=== PATIENT | male | born 1960 | race Caucasian/White ===

== ENCOUNTER 2018-02-23 08:44 | Inpatient (IN) | payer OTHER ==
[~2018-02-23] VITALS: Ht 172.7 cm; Wt 67.6 kg
[2018-02-23] MEDS ORDERED: TAMS0.4C34 PO (08:56)
[2018-02-23] MEDS ORDERED: ROSU10TA PO (08:56)
[2018-02-23] MEDS ORDERED: ASPI-605 PO (08:56)
[2018-02-23] MEDS ORDERED: CLOP75TA15 PO (08:56)
[2018-02-23] MEDS ORDERED: MORPHINE SULFATE 2 MG/1 ML DISP.SYRIN IV ONE (09:00)
[2018-02-23] MEDS ORDERED: ONDANSETRON 4 MG/2 ML VIAL IV ONE (09:00)
[2018-02-23] MEDS ORDERED: IV NORMAL SALINE 1000 ML BAG IV ONE (09:00)
[2018-02-23] MEDS ORDERED: SWABABLE VALVE TRANSFER SET EA MC ONE (09:10)
[2018-02-23] MEDS ORDERED: IV NORMAL SALINE 250 ML IV ONE (09:10)
[2018-02-23] MEDS ORDERED: IOHEXOL 300MG/ML 100 ML INFUS..BTL ONE (09:10)
[2018-02-23 09:14] LABS: BASOPHILS % (AUTO) 0.2 % (0.0-2.0); EOSINOPHILS # (AUTO) 0.1 K/uL (0.0-0.7); EOSINOPHILS % (AUTO) 0.9 % (0.0-7.0); HEMATOCRIT 45.8 % (36.7-47.1); HEMOGLOBIN 15.9 g/dL (12.5-16.3); LYMPHOCYTES # (AUTO) 0.9 K/uL (20.0-40.0); LYMPHOCYTES % (AUTO) 9.5 % (20.5-51.5); MEAN CORPUSCULAR HEMOGLOBIN 31.3 uug (23.8-33.4); MEAN CORPUSCULAR HGB CONC 35 g/dL (32.5-36.3); MEAN CORPUSCULAR VOLUME 89.7 fL (73.0-96.2); MONOCYTES # (AUTO) 0.5 K/uL (2.0-10.0); MONOCYTES % (AUTO) 5.6 % (0.0-11.0); NEUTROPHILS # (AUTO) 7.9 K/uL (1.8-8.9); NEUTROPHILS % (AUTO) 83.8 % (38.5-71.5); PLATELET COUNT (AUTO) 239 K/uL (152-348); WHITE BLOOD COUNT (AUTO) 9.4 K/uL (3.6-10.2)
[2018-02-23] MEDS ORDERED: MORPHINE SULFATE 2 MG/1 ML DISP.SYRIN ONE (09:17)
[2018-02-23] MEDS ORDERED: ONDANSETRON 4 MG/2 ML VIAL ONE (09:17)
[2018-02-23 09:28] LABS: CREATININE 0.9 mg/dL (0.6-1.3); POTASSIUM 3.9 mmol/L (3.5-5.1)
[2018-02-23 09:28] LABS: *BILIRUBIN,URIN NEGATIVE (NEGATIVE); *BLOOD, URINE Trace-lysed (NEGATIVE); *CLARITY,URINE CLEAR (CLEAR); *COLOR,URINE LIGHT YELLOW (YELLOW); *KETONES,URINE NEGATIVE (NEGATIVE); *PROTEIN,URINE NEGATIVE (NEGATIVE); *UROBILINOGEN,URINE 0.2 E.U./dl (NORMAL); LEUKOCYTE ESTERASE ,URINE NEGATIVE (NEGATIVE); NITRITE, URINE NEGATIVE (NEGATIVE); UGLUCOSE NEGATIVE (NEGATIVE)
[2018-02-23 09:39] LABS: BILIRUBIN,DIRECT 0.2 mg/dL (0.0-0.2); BILIRUBIN,TOTAL 1.1 mg/dL (0.2-1.0)
[2018-02-23 09:41] LABS: BACTERIA,URINE NONE SEEN /HPF (NONE SEEN); WBC,URINE NONE SEEN /HPF (0-3)
[2018-02-23 09:43] LABS: RBC,URINE 0-3 /HPF (0-3); SQUAMOUS EPITHELIAL CELL,UR FEW /HPF (NONE SEEN)
[2018-02-23] MEDS ORDERED: MORPHINE SULFATE 4 MG/1 ML DISP.SYRIN ONE (10:11)
[2018-02-23] MEDS ORDERED: MORPHINE SULFATE 4 MG/1 ML DISP.SYRIN IV ONE (10:15)
[2018-02-23] MEDS ORDERED: NITROGLYCERIN 0.4 MG/TAB BOTTLE SL ONE ×2 (11:10→11:15)
--- NOTE | 2018-02-23 13:00 | NUR ---
hospital lunch tray provided for pt.
[2018-02-23] MEDS ORDERED: HYDROMORPHONE 1 MG/1 ML DISP.SYRIN ONE (13:08)
[2018-02-23] MEDS ORDERED: HYDROMORPHONE 1 MG/1 ML DISP.SYRIN IV ONE (13:15)
--- NOTE | 2018-02-23 13:20 | NUR ---
pari nayakskidder operator at bedside evaluating the pt
--- NOTE | 2018-02-23 13:20 | NUR ---
pt transfere to floor in stable condition
--- NOTE | 2018-02-23 13:20 | NUR ---
PATIENT TRANSFERRED ONTO MS FLOOR IN STABLE CONDITION. NO SIGNS OF DISTRESS. VITAL SIGNS STABLE. TELEMETRY PLACED AND SHOWS SINUS PAULINE. COMPLAINS OF CHEST PAIN 9/10 NOT RADIATING, TIGHTNESS. WILL ADMINISTER MEDICATIONS. PLACED ON O2 2L NC. BELONGINGS CHECKED. IV PATENT. WILL CONTINUE TO MONITOR.
[2018-02-23] MEDS ORDERED: IV NS 1000 ML 1,000 ML IV PRN (13:35)
[2018-02-23] MEDS ORDERED: NITROGLYCERIN OINT 1 GM PACKET TP PRN (13:45)
[2018-02-23] MEDS ORDERED: DOCUSATE SODIUM 100 MG CAPSULE PO PRN (13:45)
[2018-02-23] MEDS ORDERED: NITROGLYCERIN 0.4 MG/TAB BOTTLE SL PRN (13:45)
[2018-02-23] MEDS ORDERED: ONDANSETRON 4 MG/2 ML VIAL IV PRN (13:45)
[2018-02-23] MEDS ORDERED: MAG HYDROX/AL HYDROX/SIMETH 30 ML LIQUID UDC PO PRN (13:45)
[2018-02-23 14:17] VITALS: BP 127/76
--- NOTE | 2018-02-23 14:31 | NUR ---
TEXT DR. FIGUEREDO FOR MRI APPROVAL.
[2018-02-23 15:06] VITALS: BP 125/76
[2018-02-23] MEDS: MORPHINE SULFATE 2 MG/1 ML DISP.SYRIN IV PRN ×2 (15:25→20:15)
--- NOTE | 2018-02-23 15:25 | NUR ---
PATIENT COMPLAINING OF CHEST PAIN. MORPHINE 2 MG IV ADMINISTERED. BP WNL. STABLE. WILL CONTINUE TO MONITOR.
--- NOTE | 2018-02-23 17:40 | NUR ---
PATIENT CONTINUES TO COMPLAIN OF CHEST PAIN BUT AT DECREASED RATE. NITRO-BID PASTE PLACED. BP WNL. TELE SHOWS SINUS PAULINE. MD IS AWARE OF BRADYCARDIA.
--- NOTE | 2018-02-23 18:31 | NUR ---
PATIENT RESTING COMFORTABLY IN BED AT THIS TIME. VITAL SIGNS STABLE. NO SIGNS OF DISTRESS. ON O2 2L NC. SATURATING WNL. MRI CHEST W/O CONTRAST NOT SCHEDULED YET. MRI CHECKLIST COMPLETED AND PLACED IN CHART. TELE SHOWS SINUS PAULINE. PATIENT A/OX4. AMBULATORY. FARSI SPEAKING. SAFETY MEASURES IMPLEMENTED. WILL CONTINUE TO MONITOR.
--- NOTE | 2018-02-23 19:50 | NUR ---
Pt AxO x4, sitting up in bed. Farsi speaking but understands Kyrgyz. Discussed and reviewed plan of care with pt, pt cooperative with care. Tele noted to be SR-SB with HR of 46-50. O2 sat 95% via 2 L NC. Pt complains of headache, neck pain and back pain at this time. Pain level rated to be 9/10 on pain scale. Cervical collar in place. Comfort measures initiated. Bed in low locked position, call light within reach. Will continue to monitor closely.
[2018-02-23 20:00] VITALS: BP 120/74
[2018-02-23] MEDS: ACETAMINOPHEN 325 MG TABLET PO PRN (20:16)
[2018-02-23] MEDS: SIMVASTATIN 20 MG TABLET PO SCH (20:16)
[2018-02-24] VITALS: BP 96/59
[2018-02-24 04:00] VITALS: BP 94/52
--- NOTE | 2018-02-24 06:20 | NUR ---
Pt slept well during the night. Pain med given x2 with effect. Pt denies pain, SOB or headache at this time. Comfort measures maintained. Will endorse accordingly.
[2018-02-24 06:34] LABS: PHOSPHOROUS 4.2 mg/dL (2.5-4.9); POTASSIUM 3.8 mmol/L (3.5-5.1)
[2018-02-24 06:44] LABS: BASOPHILS % (AUTO) 0.5 % (0.0-2.0); EOSINOPHILS # (AUTO) 0.3 K/uL (0.0-0.7); EOSINOPHILS % (AUTO) 3.1 % (0.0-7.0); LYMPHOCYTES # (AUTO) 1.3 K/uL (20.0-40.0); LYMPHOCYTES % (AUTO) 15.2 % (20.5-51.5); MEAN CORPUSCULAR HGB CONC 35 g/dL (32.5-36.3); MEAN CORPUSCULAR VOLUME 88.5 fL (73.0-96.2); MONOCYTES # (AUTO) 0.6 K/uL (2.0-10.0); MONOCYTES % (AUTO) 7.2 % (0.0-11.0); NEUTROPHILS # (AUTO) 6.4 K/uL (1.8-8.9); PLATELET COUNT (AUTO) 231 K/uL (152-348); RED BLOOD CELL COUNT(AUTO) 4.44 MIL/uL (4.06-5.63); WHITE BLOOD COUNT (AUTO) 8.6 K/uL (3.6-10.2)
[2018-02-24 06:55] LABS: THYROID STIMULATING HORMONE 1.629 mIU/mL (0.358-3.740)
[2018-02-24 06:58] LABS: HEMATOCRIT 39.3 % (36.7-47.1); HEMOGLOBIN 13.8 g/dL (12.5-16.3)
--- NOTE | 2018-02-24 07:33 | NUR ---
PATIENT RESTING COMFORTABLY IN BED. NO SIGNS OF DISTRESS. C-COLLAR ON AT THIS TIME. POSSIBLE MRI CHEST W/O CONTRAST TODAY AT [facility]. STABLE CONDITION. PAIN MANAGEMENT WILL BE PROVIDED. A/OX4. CALL LIGHT WITHIN REACH OF PATIENT. SAFETY MEASURES IMPLEMENTED. WILL CONTINUE TO MONITOR THROUGHOUT SHIFT.
[2018-02-24] MEDS: TAMSULOSIN HCL 0.4 MG CAP.SR.24H PO SCH (08:21)
[2018-02-24] MEDS: ASPIRIN 81 MG TAB.CHEW PO SCH (08:21)
[2018-02-24] MEDS: CLOPIDOGREL 75 MG TABLET PO SCH (08:21)
[2018-02-24] MEDS: ACETAMINOPHEN 325 MG TABLET PO PRN ×2 (10:31→16:59)
[2018-02-24 11:12] VITALS: BP 110/67
[2018-02-24] MEDS ORDERED: ERGO500014 PO (11:41)
--- NOTE | 2018-02-24 12:00 | NUR ---
PATIENT LEFT FOR MRI CSPINE W/O CONTRAST AT THIS TIME. TRANSPORTED BY AMBULANCE IN STABLE CONDITION. TELEMETRY MONITORING TAKEN OFF AND LEFT INSIDE ROOM.
--- NOTE | 2018-02-24 13:50 | NUR ---
PATIENT RETURNED FROM [facility]. STABLE CONDITION. TELEMETRY PLACED. VITAL SIGNS STABLE.
[2018-02-24 15:15] VITALS: BP 101/57
--- NOTE | 2018-02-24 19:35 | NUR ---
RECEIVED PATIENT IN BED, ALERT ORIENTED, NO COMPLAINS OF PAIN AT THIS TIME, NECK BRACES IN PLACE, CONT TO MONITOR.
[2018-02-24 20:00] VITALS: BP 107/62
[2018-02-24] MEDS: SIMVASTATIN 20 MG TABLET PO SCH (20:37)
[2018-02-25 04:00] VITALS: BP 107/58
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
--- NOTE | 2018-02-25 07:15 | NUR ---
PATIENT RECEIVED ASLEEP ALERT AND ORIENTED X4, NO ACUTE DISTRESS NOTED. INDEPENDENT WITH ADLS BRP IV ACCESS ON THE LEFT AC #20 INTACT AND PATENT. APPEARS COMFORTABLE. CALL LIGHT WITHIN REACH. WILL CONTINUE TO MONITOR CLOSELY.
[2018-02-25] MEDS: CLOPIDOGREL 75 MG TABLET PO SCH (08:23)
[2018-02-25] MEDS: TAMSULOSIN HCL 0.4 MG CAP.SR.24H PO SCH (08:23)
[2018-02-25] MEDS: ASPIRIN 81 MG TAB.CHEW PO SCH (08:24)
[2018-02-25] MEDS: MORPHINE SULFATE 2 MG/1 ML DISP.SYRIN IV PRN (08:28)
[2018-02-25] MEDS ORDERED: MORPHINE SULFATE 4 MG/1 ML DISP.SYRIN IV PRN (10:15)
[2018-02-25 11:10] VITALS: BP 102/59
[2018-02-25 15:02] VITALS: BP 105/62
--- NOTE | 2018-02-25 17:36 | NUR ---
PATIENT DISCHARGED HOME IN STABLE CONDITION. DISCHARGE PAPERS AND INSTRUCTIONS GIVEN AND EXPLAINED TO PATIENT. PRESCRIPTION GIVEN REFUSED MEDICATION EDUCATION FROM RX. BELONGINGS LIST COMPLETED. IV ACCESS REMOVED. PATIENT LEFT HOSPITAL WITH DAUGHTER QUIANA VIA PRIVATE CAR.
== END 2018-02-25 17:36 | disposition home or self-care (01) | DRG 144 ==
LOC: ER 08:44 → TELE 13:17 → MED 02-24 18:00
PROVIDERS: ADMIT Registered Nurse; ATTEND Registered Nurse
DX: S29.9XXA Unspecified injury of thorax, initial encounter (principal); G95.89 Other specified diseases of spinal cord; Q24.5 Malformation of coronary vessels; M48.02 Spinal stenosis, cervical region; S13.4XXA Sprain of ligaments of cervical spine, initial encounter; R07.81 Pleurodynia; V43.52XA Car driver injured in collision with other type car in traffic accident, initial encounter; Y92.410 Unspecified street and highway as the place of occurrence of the external cause; Z98.1 Arthrodesis status; I25.2 Old myocardial infarction; N40.0 Benign prostatic hyperplasia without lower urinary tract symptoms; Z79.02 Long term (current) use of antithrombotics/antiplatelets; Z79.82 Long term (current) use of aspirin; Z79.899 Other long term (current) drug therapy; E78.5 Hyperlipidemia, unspecified; I25.10 Atherosclerotic heart disease of native coronary artery without angina pectoris; M50.11 Cervical disc disorder with radiculopathy, high cervical region; G89.29 Other chronic pain; R10.9 Unspecified abdominal pain; M54.5 Low back pain; M47.22 Other spondylosis with radiculopathy, cervical region
CPT/HCPCS: 36415; 70030-TC; 71045; 71260; 72125; 72141; 83735; 84100; 84443; 85025; 85730; 86850; 86900; 86901; 93005; 93307; A4663; G0378; J1170; J2270; J2405; J7030; J7040; J7050; Q9967